=== PATIENT | male | born 1985 | race African-American/Black ===

== ENCOUNTER 2019-02-01 17:55 | Emergency (ER) | payer OTHER, SELFPAY ==
[2019-02-01] VITALS (13 sets, daily range): BP systolic 140–148; BP diastolic 74–91; PULSE 58–90; RESP 11–19; TEMP 36.6–36.7; O2SAT 98–100
--- NOTE | 2019-02-01 17:48 | W.ED.GENAD ---
Discharge Plan Disposition Patient Disposition: HOME Condition: Good Discharge Details Chief Complaint: Chest Pain Clinical Impression: Chest wall pain, Atypical chest pain Primary Care Provider: [place] ED Provider: Malena Bolaños Home Meds and New Rx's Prescriptions: Continued flecainide [Tambocor] 50 MG tablet 100 mg PO BID RF: 0 Discharge Instructions Instructions: Chest Wall Pain (ED) Additional Instructions: Alternate Tylenol and Motrin as needed and directed for pain. Take your regular medications as directed. Follow-up with your primary care doctor within the next week for reevaluation and for follow-up with cardiology for further evaluation as needed. Return to the emergency department if you develop any worsening or new concerning symptoms. 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 Patient states he stood up from the bed and noted right sided anterior lower chest pain. He describes it as sharp, constant without aggravating factors. He was given 81 mg aspirin and 2 nitro at the correctional facility. He states he had relief of pain from 7/10 to 5/10 after first nitro and down to 3/10 after second nitro. He denies any other associated symptoms of nausea, vomiting, shortness of breath, cough or fever, or recent injury, alcohol or drug use. He does admit to some mild lightheadedness with walking. EKG done by EMS reported questionable ST elevation in V2 and V3 but this did not appear consistent with ST elevation. EKG on arrival notes a rate of 67, sinus with no acute ST elevation or depression. BP mildly hypertensive, 148/87, remainder vitals within normal limits. Patient appears nontoxic and comfortable. Patient has tenderness to palpation of bilateral inferior anterior right and left ribs as well as epigastric tenderness below bilateral ribs. No rigidity or guarding of abdomen. Lungs clear. Differential diagnosis includes costochondritis, chest wall strain, gastritis, GERD. Patient has no associated symptoms and does not appear consistent with ACS but considering patient's history will obtain a cardiac work-up including labs, cxr. Will give a dose of Toradol, Pepcid and GI cocktail and reassess. 1839 --patient reassessed -- patient states he feels much better. Pain completely resolved. He remains hemodynamically stable. 1944 --labs and imaging reviewed and unremarkable. Negative d-dimer and troponin. Lipase within normal limits. Chest x-ray negative. He is agreeable to stay for second troponin. 2199 --second troponin negative. Repeat EKG unchanged. Patient denies any symptoms and has remained pain-free. Case discussed with [facility] cardiology who reviewed both EKGs and agree there does not appear to be in any acute ST ischemic changes. They have EKGs on file from 2016 and EKG appears similar and actually improved today. Agree with plan for discharge home and to return as needed. Patient was given usual and customary return precautions prior to discharge. Medical Records Medical records reviewed: Yes I reviewed the patient's medical records. Imaging Data Radiologic Study: Radiologist's impression: XR Chest, 2 Views Exam date and time: 02/01/2019 6:54 PM Age: 33 years old Clinical history: Chest pain; Prior surgery TECHNIQUE: Imaging protocol: XR of the chest Views: 2 views. COMPARISON: CT CHEST WITHOUT CONTRAST 03/25/2015 12:09 AM FINDINGS: Lungs: Unremarkable. No consolidation. Pleural space: Unremarkable. No pleural effusion. No pneumothorax. Heart/Mediastinum: Unremarkable. No cardiomegaly. Bones/joints: Thoracolumbar hardware is normal where visualized.. IMPRESSION: No acute findings. Lab Data Lab results reviewed: Yes I reviewed the patient's lab results. Labs: Laboratory Tests Range/Units 02/01/19 02/01/19 02/01/19 18:20 18:20 18:20 WBC (4.4-10.8) k/cumm 4.98 RBC (4.50-6.00) m/cumm 4.81 Hgb (13.5-17.5) g/dL 13.5 Hct (40.0-50.0) % 40.4 MCV (80-95) fL 84.0 MCH (27.0-33.0) pg 28.1 MCHC (32.0-36.0) g/dL 33.4 RDW (11.8-14.1) % 13.6 Plt Count (130-400) x1000/uL 244 MPV (8.0-11.0) fL 9.7 Immature Gran % 0.2 Neutrophils % 55.1 Lymphocytes % 33.5 Monocytes % 9.6 Eosinophils % 1.2 Basophils % 0.4 Absolute Neutrophils (1.2-6.7) k/cumm 2.74 Absolute Lymphocytes (1.2-3.4) k/cumm 1.67 Absolute Monocytes (0.11-0.7) k/cumm 0.48 Absolute Eosinophils (0.0-0.7) k/cumm 0.06 Absolute Basophils (0.0-0.2) k/cumm 0.02 D-Dimer (<500) ng/mlFEU Sodium (136-145) mmol/L 145 Potassium (3.5-5.1) mmol/L 3.9 Chloride (98-107) mmol/L 107 Carbon Dioxide (21.0-32.0) mmol/L 29.1 Anion Gap (3-11) mmol/L 8.9 BUN (7-18) mg/dL 13 Creatinine (0.70-1.30) mg/dL 1.17 Estimated GFR/1.73 m2 (mL/min/1.73m2) >= 60.00 Glucose (74-106) mg/dL 85 Calcium (8.5-10.1) mg/dL 8.5 Magnesium (1.8-2.4) mg/dL 2.1 Total Bilirubin (0.2-1.0) mg/dL 0.2 AST (15-37) U/L 13 L ALT (16-63) U/L 13 L Alkaline Phosphatase (46-116) U/L 38 L Troponin I (<0.06) ng/Ml < 0.05 Total Protein (6.4-8.2) g/dL 7.2 Albumin (3.4-5.0) g/dL 3.8 Lipase (73-393) U/L 119 Range/Units 02/01/19 02/01/19 18:20 21:30 WBC (4.4-10.8) k/cumm RBC (4.50-6.00) m/cumm Hgb (13.5-17.5) g/dL Hct (40.0-50.0) % MCV (80-95) fL MCH (27.0-33.0) pg MCHC (32.0-36.0) g/dL RDW (11.8-14.1) % Plt Count (130-400) x1000/uL MPV (8.0-11.0) fL Immature Gran % Neutrophils % Lymphocytes % Monocytes % Eosinophils % Basophils % Absolute Neutrophils (1.2-6.7) k/cumm Absolute Lymphocytes (1.2-3.4) k/cumm Absolute Monocytes (0.11-0.7) k/cumm Absolute Eosinophils (0.0-0.7) k/cumm Absolute Basophils (0.0-0.2) k/cumm D-Dimer (<500) ng/mlFEU 366 Sodium (136-145) mmol/L Potassium (3.5-5.1) mmol/L Chloride (98-107) mmol/L Carbon Dioxide (21.0-32.0) mmol/L Anion Gap (3-11) mmol/L BUN (7-18) mg/dL Creatinine (0.70-1.30) mg/dL Estimated GFR/1.73 m2 (mL/min/1.73m2) Glucose (74-106) mg/dL Calcium (8.5-10.1) mg/dL Magnesium (1.8-2.4) mg/dL Total Bilirubin (0.2-1.0) mg/dL AST (15-37) U/L ALT (16-63) U/L Alkaline Phosphatase (46-116) U/L Troponin I (<0.06) ng/Ml < 0.05 Total Protein (6.4-8.2) g/dL Albumin (3.4-5.0) g/dL Lipase (73-393) U/L ECG Data Attestation: I personally reviewed and interpreted this ECG (s) as follows: Interpretation: Rate of 67, sinus, no acute ST elevation or depression. T wave inversion in aVL. MN 182. QTc 376. QRS 98. HPI General Mode of arrival: EMS. Date/Time Provider Initiated Documentation: 02/01/19 18:04. Limitations to Documentation: no limitations. Information obtained by: patient. History of Present Illness 33 year old M presents to the emergency department with the chief complaint of Chest pain , Quality is described as sharp, and is localized to the chest. Patient reports radiation to (radiates from R lower to L lower anterior chest ). Patient started experiencing this minute(s) (90) and it has been constant. other things that improve symptom(s), (nitro x 2) No exacerbating factors reported . Patient notes denies cough, fever/chills, nausea/vomiting, rash, seizure, shortness of breath, syncope and weakness. Patient did receive the following treatments prior to arrival, Aspirin and other (nitro x 2 ) Related Data Home Medications Medication Instructions Recorded Confirmed flecainide [Tambocor] 100 mg PO BID 03/24/15 02/01/19 Allergies Allergy/AdvReac Type Severity Reaction Status Date / Time No Known Allergies Allergy Unverified 02/01/19 17:56 Review of Systems All systems reviewed & are unremarkable except as noted in HPI and below Constitutional Constitutional: Reports as per HPI, Denies chills and Denies fever(s) Eyes Eyes: Denies blurry vision ENT Ears, Nose, Mouth, and Throat: Denies dizziness, Denies sore throat and Denies throat swelling Cardiovascular Cardiovascular: Reports chest pain and Denies dyspnea Respiratory Respiratory: Denies cough and Denies dyspnea Gastrointestinal Gastrointestinal: Denies abdominal pain, Denies diarrhea and Denies vomiting Genitourinary Genitourinary: Denies hematuria and Denies dysuria Musculoskeletal Musculoskeletal: Denies back pain and Denies numbness Integumentary/Breasts Skin/Breast: Denies lesions and Denies rash Neurologic Neurologic: Denies dizziness, Denies focal weakness and Denies numbness Allergic/Immunologic Allergic/Immunologic: Denies throat swelling [facility] Medical History (Updated 02/01/19 @ 18:34 by Malena Bolaños DO) WPW (Iyvqd-Iluakoixz-Lkelu syndrome) (Acute) diagnosed in 2012 Surgical History (Updated 02/01/19 @ 18:35 by Malena Bolaños DO) History of cardiac radiofrequency ablation (Acute) 2012 History of discectomy (Acute) thoracic; 2016 History of laminectomy (Acute) T11-12; 2016 History of thoracic spinal fusion (Acute) T11-12; 2016 Social History Smoking/Tobacco Use Status: Never Alcohol Intake: former Drug use: Current Sobriety Details: in corrections. Exam Const General: cooperative, healthy appearing and no acute distress HENLA Head: normal to inspection Face and sinus: normal facial exam Eyes General: appearance normal, both eyes and all related structures EOM: EOM intact bilaterally Neck Neck: normal visual inspection and No submandibular swelling Lymphatic: no lymphadenopathy noted Chest Chest: normal inspection of the chest and no tenderness Chest/axillae images: 1. Tenderness to palpation along bilateral lower anterior ribs and epigastric region. Resp Effort & Inspection: normal respiratory effort and able to speak in complete sentences Auscultation: clear to auscultation bilaterally Cardio Rate: regular rate Rhythm: regular rhythm GI Inspection: normal to inspection and no abdominal wall ecchymosis Palpation: soft, not firm, not rigid and tender in the epigastrum, in the LUQ (more near epigastrum) and in the RUQ (more near epigastrum) Auscultation: normal bowel sounds Skin General skin exam: no rashes or lesions noted Neuro General: alert, awake and oriented x3 Cognition: normal cognition Speech: speech normal Motor: muscle tone normal throughout Sensory Exam: no sensory deficits noted Extrem General: normal to inspection, full ROM, normal capillary refill, no calf tenderness bilaterally and no edema Psych Appearance: grossly normal Mental Status: mental status grossly normal Speech and Movement: speech and movement normal Affect: normal affect
[2019-02-01] MEDS: Aspirin 81 MG CHEW (18:04)
[2019-02-01] MEDS: Normal Saline 1,000 ML 1000 ML IV (18:15)
[2019-02-01] MEDS: Ketorolac 30 MG/ML VIAL IVP (18:17)
[2019-02-01] MEDS: FAMOTIDINE 20 MG/50 ML BAG 200 MG IVPB (18:18)
[2019-02-01 18:42] LABS: Abs Immature Grans 0.01 k/cumm (0.0-0.09); Absolute Basophil Count 0.02 k/cumm (0.0-0.2); Absolute Eosinophil Count 0.06 k/cumm (0.0-0.7); Absolute Lymphocyte Count 1.67 k/cumm (1.2-3.4); Absolute Monocyte Count 0.48 k/cumm (0.11-0.7); Absolute Neutrophil Count 2.74 k/cumm (1.2-6.7); Basophils % 0.4; Eosinophils % 1.2; HCT 40.4 % (40.0-50.0); HGB 13.5 g/dL (13.5-17.5); Immature Grans % 0.2; Lymphocytes % 33.5; Mean Corp. HGB Concentration 33.4 g/dL (32.0-36.0); Mean Corpuscular Hemoglobin 28.1 pg (27.0-33.0); Mean Platelet Volume 9.7 fL (8.0-11.0); Monocytes % 9.6; Neutrophils % 55.1; Platelet Count 244 x1000/uL (130-400); RBC 4.81 m/cumm (4.50-6.00); RBC Distribution Width 13.6 % (11.8-14.1); White Blood Cell Count 4.98 k/cumm (4.4-10.8)
[2019-02-01 18:52] LABS: Lipase 119 U/L (73-393)
--- NOTE | 2019-02-01 18:55 | DI.RAD_ITS ---
EXAM: XR CHEST 2V PA LATERAL INDICATION: chest pain, r/o acute disease. COMPARISON: No exams were available for comparison TECHNIQUE: 2D digital imaging was performed. FINDINGS: The heart size is normal. The lungs appear clear. No infiltrate, effusion or pneumothorax is seen. There is a mild T12 compression fracture. There is hardware in place at the T11 through L1 levels. IMPRESSION: No acute abnormality.
[2019-02-01 18:56] LABS: ALT 13 U/L (16-63); AST 13 U/L (15-37); Albumin 3.8 g/dL (3.4-5.0); Alkaline Phosphatase 38 U/L (46-116); Anion Gap 8.9 mmol/L (3-11); BUN 13 mg/dL (7-18); Bilirubin, Total 0.2 mg/dL (0.2-1.0); CO2 29.1 mmol/L (21.0-32.0); CREATININE 1.17 mg/dL (0.70-1.30); Calcium 8.5 mg/dL (8.5-10.1); Chloride 107 mmol/L (98-107); Glucose 85 mg/dL (74-106); Magnesium 2.1 mg/dL (1.8-2.4); Potassium 3.9 mmol/L (3.5-5.1); Sodium 145 mmol/L (136-145); Total Protein 7.2 g/dL (6.4-8.2)
--- NOTE | 2019-02-01 19:04 | NUR.NOTE ---
Assumed care of pt. Report from REENA Figueroa. Pt returns from xray, placed on monitor. Reports pain down to 1/10 after meds. Constant, sharp right chest pain. Non-radiating. Reports associated lightheadedness. NS infusing through #22 LH. SR on monitor.
[2019-02-01 19:10] LABS: Troponin I < 0.05 ng/Ml (<0.06)
[2019-02-01 19:11] LABS: D-Dimer 366 ng/mlFEU (<500)
--- NOTE | 2019-02-01 19:19 | DI.VRAD_ITS ---
PROCEDURE INFORMATION: Exam: XR Chest, 2 Views Exam date and time: 02/01/2019 6:54 PM Age: 33 years old Clinical history: Chest pain; Prior surgery TECHNIQUE: Imaging protocol: XR of the chest Views: 2 views. COMPARISON: CT CHEST WITHOUT CONTRAST 03/25/2015 12:09 AM FINDINGS: Lungs: Unremarkable. No consolidation. Pleural space: Unremarkable. No pleural effusion. No pneumothorax. Heart/Mediastinum: Unremarkable. No cardiomegaly. Bones/joints: Thoracolumbar hardware is normal where visualized.. IMPRESSION: No acute findings. Dictated and Authenticated by: Brianda Gomez MD. Ordering:SYD Guy MD
--- NOTE | 2019-02-01 21:35 | NUR.NOTE ---
second EKG done and lab in to draw trop. Continues to deny pain. SR on monitor.
[2019-02-01 22:02] LABS: Troponin I < 0.05 ng/Ml (<0.06)
--- NOTE | 2019-02-01 22:29 | NUR.NOTE ---
Report to Shayy at [facility].
== END 2019-02-01 22:22 | disposition home or self-care (01) ==
PROVIDERS: Emergency Provider Physician Assistant; PCP Emergency Medicine
DX: R07.89 Other chest pain (principal); R07.81 Pleurodynia; I45.6 Pre-excitation syndrome; I10 Essential (primary) hypertension
CPT/HCPCS: 36415; 80053; 83690; 93005; 96361; 96365; 96375; 99285; 71046; 83735; 84484; 85025; 85379; 93010; J1885